=== PATIENT | female | born 2000 | race Caucasian/White ===

== ENCOUNTER 2018-01-22 17:22 | Emergency (ER) | payer OTHER ==
[2018-01-22] MEDS ORDERED: Ketorolac Tromethamine 30 MG/ML VIAL ONE (17:51)
[2018-01-22] MEDS ORDERED: Lorazepam 2 MG/ML VIAL ONE (17:51)
[2018-01-22 18:01] LABS: #Eosinphils 0.1 thou/uL (0.0-0.7); #Lymphocytes 2.7 thou/uL (1.20-3.40); #Monocytes 0.7 thou/uL (0.11-0.59); #Neutrophils 4.2 thou/uL (1.40-6.50); %Basophils 0.5 % (0.0-1.0); %Eosinophils 1.2 % (0.0-10.0); %Neutrophils 54.3 % (31.0-61.0); Hemoglobin 14.5 g/dL (12.0-16.0); Mean Corpuscular HGB CONC 32.7 g/dL (32.0-36.0); Mean Corpuscular Hemoglobin 31.6 pg (25.0-35.0); Mean Corpuscular Volume 96.4 fL (78.0-98.0); Mean Platelet Volume 8.4 fL (7.4-10.4); Platelet Count 296 thou/uL (130-400); RBC Distribution Width 11.9 % (11.5-14.5); Red Blood Cell (RBC) Count 4.59 mill/uL (4.00-5.20); White Blood Cell (WBC) Count 7.8 thou/uL (4.8-10.8)
--- NOTE | 2018-01-22 18:06 | RAD ---
PORTABLE UPRIGHT FRONTAL CHEST RADIOGRAPH: 01/22/2018 HISTORY: Chest pain and left arm pain. Palpitations. COMPARISON: None. FINDINGS: The lungs are clear. The heart and mediastinal contour is unremarkable. IMPRESSION: No acute findings. POS: [facility]
[2018-01-22 18:23] LABS: ALT (SGPT) 20 U/L (8-55); AST (SGOT) 19 U/L (5-30); Albumin 4.4 g/dL (3.5-5.0); Alkaline Phosphatase 42 U/L (40-150); Anion Gap 12 mmol/L (10-20); BUN (Urea Nitrogen) 10 mg/dL (8.4-21.0); Bilirubin, Total 0.6 mg/dL (0.2-1.2); CK (CPK) 93 U/L (29-168); Calc. Creatinine Clearance 0 mL/min (70-130); Calcium 9.7 mg/dL (7.8-10.44); Carbon Dioxide 23 mmol/L (22-29); Chloride 106 mmol/L (98-107); Estimated GFR-MDRD Greater than 90; Globulin 2.8 g/dL (2.4-3.5); Glucose 88 mg/dL (70-105); Lipase 37 U/L (8-78); Potassium 3.8 mmol/L (3.5-5.1); Protein, Total 7.2 g/dL (6.0-8.3); Sodium 137 mmol/L (136-145)
[2018-01-22 18:27] LABS: CKMB 1.4 ng/mL (0-6.6); Troponin I Less than 0.010 ng/mL (< 0.028)
[2018-01-22 19:47] LABS: Troponin I Less than 0.010 ng/mL (< 0.028)
== END 2018-01-22 20:13 | disposition home or self-care (01) ==
LOC: ERS 17:22
DX: R07.89 Other chest pain (principal); R09.1 Pleurisy; F32.9 Major depressive disorder, single episode, unspecified; Z79.899 Other long term (current) drug therapy
CPT/HCPCS: 36415; 71045; 80053; 82550; 82553; 83690; 84484; 85025; 93005; 96374; 96375; J1885; J2060

== ENCOUNTER 2018-02-22 16:21 | Emergency (ER) | payer OTHER ==
--- NOTE | 2018-02-22 17:05 | RAD ---
LEFT ANKLE 3 VIEWS: Date: 02/22/18 HISTORY: Left ankle pain. FINDINGS/IMPRESSION: The ankle mortise is maintained. No acute fracture, dislocation, or bony destruction is identified. POS: OFF
--- NOTE | 2018-02-22 17:06 | RAD ---
LEFT FOOT 3 VIEWS: Date: 02/22/18 HISTORY: Left foot pain. FINDINGS/IMPRESSION: No acute fracture or dislocation is identified. POS: OFF
[2018-02-22] MEDS ORDERED: HYDROcodone/Acetaminophen 5/325 mg Tablet ONE (17:28)
== END 2018-02-22 17:40 | disposition home or self-care (01) ==
LOC: ERS 16:21
DX: M25.572 Pain in left ankle and joints of left foot (principal); F32.9 Major depressive disorder, single episode, unspecified; F41.9 Anxiety disorder, unspecified; Z79.899 Other long term (current) drug therapy; X50.9XXA Other and unspecified overexertion or strenuous movements or postures, initial encounter

== ENCOUNTER 2020-05-01 10:56 | Outpatient (CLI) | payer OTHER ==
--- NOTE | 2020-05-01 12:47 | ULT ---
ULTRASOUND OBSTETRICAL COMPLETE: DATE: 05/01/2020 HISTORY: Z 34.82 encounter for supervision of other normal , second trimester. FINDINGS: Maternal adnexa: Not visualized. number: perez lie: Breech Maternal cervix: 5 cm. Closed.. Placenta: Left and fundal. No previa. Amniotic fluid volume: BEBETO = 17 cm heart rate: 144 bpm The following anatomy is visualized, with no evidence of anomalies: Head, cerebellum, lateral ventricles, four-chamber heart, stomach, kidneys, cord insertion, bladder, cervical spine, thoracic spine, lumbar spine, sacrum, nose and lips, upper extremities, lower extremities, and three-vessel cord. biometry: Biparietal diameter (BPD): 5.0 cm 21 w 2 d Head circumference (HC): 18.6 cm 21 w 0 d Abdominal circumference (AC): 16.5 cm 21 w 5 d Femur length (FL): 3.1 cm 19 w 5 d Average ultrasound age (AUA): 21 w 0 d Estimated date of delivery (FELIBERTO): 09/11/2020 Estimated weight (EFW): 372 g +/- 54 g IMPRESSION: 1) Live 2nd trimester intrauterine gestation. 2) Estimated gestational age of 21 weeks, 0 days 3) breech lie. 4) no anatomic abnormality identified.
== END 2020-05-01 10:57 | disposition home or self-care (01) ==
LOC: BICULT 10:56
PROVIDERS: ATTEND Family Medicine
DX: Z34.82 Encounter for supervision of other normal pregnancy, second trimester (principal); Z3A.21 21 weeks gestation of pregnancy
CPT/HCPCS: 76805